=== PATIENT | female | born 1990 | race Caucasian/White ===

== ENCOUNTER → 2017-06-20 | Outpatient (CLI) | payer OTHER ==
[2017-06-20 16:58] LABS: ALBUMIN 3.9 gm/dl (3.4-5.0); ALT/SGPT 19 U/L (12-78); AST/SGOT 9 U/L (15-37); BLOOD UREA NITROGEN 13 mg/dl (7-18); CALCIUM 8.8 mg/dl (8.5-10.1); CARBON DIOXIDE 28 mmol/L (21-32); CREATININE 0.62 mg/dl (0.60-1.20); GLUCOSE 106 mg/dl (70-99); POTASSIUM 3.8 mmol/L (3.5-5.1); SODIUM 137 mmol/L (136-145)
[2017-06-20 17:09] LABS: ALKALINE PHOSPHATASE 79 U/L (45-117); CHOLESTEROL 175 mg/dl (0-200); LDL CHOLESTEROL CALCULATED 115 mg/dl; TOTAL PROTEIN 7.7 gm/dl (6.4-8.2)
[2017-06-21 06:45] LABS: HEMOGLOBIN A1C 5.1 % (4.5-5.6)
== END | disposition home or self-care (01) ==
LOC: C.LABBC 14:41
PROVIDERS: ATTEND Family Medicine Adult Medicine
DX: R63.5 Abnormal weight gain (principal); Z00.00 Encounter for general adult medical examination without abnormal findings

== ENCOUNTER → 2017-08-28 | Outpatient (CLI) | payer OTHER | END | disposition home or self-care (01) | LOC: C.PAPS 08:00 | PROVIDERS: ATTEND Physician Assistant | DX: Z12.4 Encounter for screening for malignant neoplasm of cervix (principal) ==

== ENCOUNTER 2024-11-21 07:25 | Inpatient (IN) ==
[2024-11-21] MEDS ORDERED: SODIUM CHLORIDE 0.9% 100 ML IV PRN (08:21)
[2024-11-21] MEDS ORDERED: OXYTOCIN 30 UNITS/NSS 30 UNITS/500 ML BAG IV PRN ×2 (09:04→20:47)
[2024-11-21] MEDS ORDERED: LIDOCAINE 1% LOCAL 20 ML VIAL INFIL PRN (09:04)
[2024-11-21 09:31] LABS: Hematocrit (blood only) 37.7 % (37.0-47.0); Hemoglobin 12.2 g/dl (12.0-16.0); Mean Corpuscular Hemoglobin 27.5 pg (25.0-34.0); Mean Corpuscular Volume 85.1 fL (80.0-100.0); Platelet Count 238 K/uL (130-400); RDW Standard Deviation 51.3 fL (36.4-46.3); Red Blood Count 4.43 M/uL (4.20-5.40); White Blood Count 13.96 K/ul (4.8-10.8)
--- NOTE | 2024-11-21 09:41 | History & Physical Report ---
Date of Service November 21, 2024 Assessment & Plan (1) Insulin controlled gestational diabetes mellitus (GDM) during : Plan: We had a lengthy discussion about risks of shoulder dystocia - she had discussed this with multiple providers in our office previously as well. Discussed that she has increased risks for shoulder dystocia - obesity, GDMA2, larger baby. Based on US performed 2w ago, can extrapolate that this baby is likely to be 1lb larger than the [id number] from last week's measurement - which would now equate to approx 3912g. This estimated weight is below the threshold to recommend delivery by CS, and her spontaneous labor, and history of delivery of large baby in the past (>8lbs) lead me to predict that she has [id number] chance of sucess for vaginal delivery. We discussed vaginal delivery attempt given the above, vs elective primary (which would carry its own risks, given her diabetes and obesity), and patient would prefer vaginal delivery if possible. I think this decision-making is reasonable. She plans for epidural. Will monitor contractions - if they do not progress to labor pattern, she is agreeable to pitocin for augmentation. History of Present Illness Chief Complaint: leaking fluid Primary Care Provider: Gunnar Atkins, DO 34yo @ 38 07/30, started leaking clear fluid at 5am, leaking continues. Feeling some contractions, no vaginal bleeding. + movement. and Delivery Plans AMA Weekly NST's @ 36 weeks Need for Rhogam d/t Rh negative blood *Rhogam given 09/10/2024 - SP Obesity (BMI between 35-39 @ beginning of ) *Growth US @ 32 wks *Weekly NSTs @ 36wks Hepatitis B- not immune GDM on insulin *Wkly NSTs @32wks and Twice wkly @36wks *Serial growth US @28wks *Deliver by [facility] (11/25/24) LGA fetus at 36 weeks--AC >98, efw 96, 3472gm., 7#10oz. - IOL scheduled for 12/01 (her desire to move later in 39th week) Allergies Allergy/AdvReac Type Severity Reaction Status Date / Time No Known Drug Allergies Allergy Verified 11/19/24 15:20 Home Medications Medication Instructions Recorded Confirmed Type docosahexaenoic acid [ DHA] PO 06/04/24 11/19/24 History acetone (urine) test (Ketone Urine #50 ea 06/28/24 11/19/24 Rx Test strips) blood sugar diagnostic (OneTouch #150 ea 06/28/24 11/19/24 Rx Verio test strips) blood-glucose meter (OneTouch #1 ea 06/28/24 11/19/24 Rx Verio Reflect Meter) lancets 33 gauge (OneTouch Delica #150 ea 06/28/24 11/19/24 Rx Plus Lancet) pen needle, diabetic 32 gauge x #100 ea 07/01/24 11/19/24 Rx 5/32" (BD Evelin 2nd Gen Pen Needle) breast pump #1 ea 11/12/24 11/19/24 Rx insulin NPH isoph U-100 human 100 85 unit subcut .at bed time 11/21/24 11/21/24 History unit/mL (3 mL) subcutaneous pen (Novolin N FlexPen) Patient History Medical History History of chicken pox Dietary counseling and surveillance Metabolic syndrome ADD (attention deficit disorder) Migraine headache Acne Surgical History S/P tonsillectomy Family History Father Diabetes Kidney stones Mother Hypertension Crohn's disease Graves disease Uncle Kidney disease Grandmother (Paternal) Uterine cancer Denies family history of Ovarian cancer Breast cancer Colorectal cancer Social History (Updated 11/21/24 @ 07:45 by Adelaida Cruz RN) Smoking Status: Never smoker Do You Dip or Chew Tobacco: No; Hx Alcohol Use: No Hx Substance Use: No Preferred Language: Welsh Communication Ability: Effective Precision Jig Grinder Required: No Beliefs That Will Affect Care: None marital status: Single marital status details: Hardy Pitts (35) [phone] Current Living Situation: Family and Significant Other Current Living Situation Comment: lives with hardy, daughter, dogs current occupational status: employed current occupation: secretary administrative assistant [employer] [facility] Other Information That Helps Us Care for You: No Feels Safe at Home: No Diet Comment: GDM Physical Activity Frequency: 3-4 Times per Week Assistive Devices: None Review of Systems All systems reviewed & are unremarkable except as noted in HPI & below Physical Exam 2 Physical Exam: FHT Cat 1 [place] - occasional SVE 4/70/-2 Leaking copious clear fluid, +nitrizine Constitutional: WD/WN, vitals as above Respiratory: normal respiratory effort, lungs clear to auscultation no respiratory distress Cardiovascular: Rate/Rhythm: regular rate and regular rhythm Gastrointestinal (Abdomen): Inspection/Auscultation: abdomen normal to inspection Percussion/Palpation: abdomen soft; abdomen nontender Gravid. No s/s chorio or abruption. Skin: no rashes, warm and dry Psychiatric: A+Ox3, euthymic affect Results & Data Vital Signs (Past 12 Hours) Vital Signs Temp Pulse Resp BP 11/21/24 08:34 36.7 C 88 18 133/85 11/21/24 07:47 36.6 C 18 Coding Level of Care Code None Diagnoses Insulin controlled gestational diabetes mellitus (GDM) during O24.414
[2024-11-21] MEDS: LACTATED RINGER'S 1,000 ML IV PRN (10:45)
[2024-11-21] MEDS: OXYTOCIN 30 UNITS/NSS 30 UNITS/500 ML BAG IV PRN (10:46)
[2024-11-21] MEDS ORDERED: NALOXONE HCL 1 MG in SODIUM CHLORIDE 0.9% 1,000 ML IV PRN (11:30)
[2024-11-21] MEDS ORDERED: ROPIVACAINE 0.5% PF 5 MG/ML 20 ML VIAL EPI PRN (11:30)
[2024-11-21] MEDS ORDERED: NALOXONE HCL 0.4 MG/1 ML VIAL/CARP IV PRN (11:30)
[2024-11-21] MEDS ORDERED: LIDOCAINE 2% MPF LOCAL 5 ML VIAL EPI PRN (11:30)
[2024-11-21] MEDS ORDERED: diphenhydrAMINE 50 MG/ML VIAL IV PRN (11:30)
[2024-11-21] MEDS ORDERED: NALBUPHINE HCL INJ 10 MG/ML AMP IV PRN (11:30)
--- NOTE | 2024-11-21 11:33 | Anesthesiology Consultation ---
Date of Service November 21, 2024 Assessment & Plan Chart Review Chart Review: Patient NOT seen in Pre Admission Testing and Acceptable Risk for Labor Epidural Consults Requested none ASA ASA3 Proposed Anesthesia Anesthesia Type: Labor Epidural Risk / Benefits Reviewed With: PT / POA / Parent / Guardian, Accepts Plan and Informed Consent Obtained History Height/Weight Height: 5 ft 5 in Weight: 112.491 kg Allergies Allergy/AdvReac Type Severity Reaction Status Date / Time No Known Drug Allergies Allergy Verified 11/19/24 15:20 Medications Home Medications Medication Instructions Recorded Confirmed Last Taken docosahexaenoic acid [ DHA] PO 06/04/24 11/19/24 11/20/24 acetone (urine) test (Ketone Urine #50 ea 06/28/24 11/19/24 Unknown Test strips) blood sugar diagnostic (OneTouch #150 ea 06/28/24 11/19/24 Unknown Verio test strips) blood-glucose meter (OneTouch #1 ea 06/28/24 11/19/24 Unknown Verio Reflect Meter) lancets 33 gauge (OneTouch Delica #150 ea 06/28/24 11/19/24 Unknown Plus Lancet) pen needle, diabetic 32 gauge x #100 ea 07/01/24 11/19/24 Unknown 5/32" (BD Evelin 2nd Gen Pen Needle) breast pump #1 ea 11/12/24 11/19/24 Unknown insulin NPH isoph U-100 human 100 85 unit subcut .at bed time 11/21/24 11/21/24 11/20/24 unit/mL (3 mL) subcutaneous pen (Novolin N FlexPen) Active Medications Generic Name Dose Route Start Last Admin Trade Name Freq PRN Reason Stop Dose Admin Lactated Ringer's 1,000 mls @ 125 mls/hr 11/21/24 09:04 11/21/24 10:45 Lr IV 11/23/24 09:03 999 mls/hr .Q8H PRN Administration L&D Protocol Protocol Oxytocin 30 units in 500 mls @ 1 mls/hr 11/21/24 09:04 11/21/24 10:46 Pitocin 30 Units/Nss IV 11/23/24 09:03 0.06 units/hr .Q24H PRN 1 mls/hr Labor Induction/Augmentation Administration Protocol 0.06 UNITS/HR NPO Date Last Intake of Fluids: 11/21/24 Time Last Intake of Fluids: 11:00 Date Last Intake of Solids: 11/21/24 Time Last Intake of Solids: 09:30 Past Medical History Medical History History of chicken pox Dietary counseling and surveillance Metabolic syndrome ADD (attention deficit disorder) Migraine headache Acne Exercise / Class Metabolic Activity 1 > 8 Run/Swim/Ski/Tennis Past Family History Family History Father Diabetes Kidney stones Mother Hypertension Crohn's disease Graves disease Uncle Kidney disease Grandmother (Paternal) Uterine cancer Denies family history of Ovarian cancer Breast cancer Colorectal cancer Past Surgical History Surgical History S/P tonsillectomy Past Anesthesia History No Hx of Anesthesia Complications and No Family Hx of Anesthesia Complications History of PONV No Hx of PONV and No Hx of Motion Sickness Social History Smoking Status: Never smoker Do You Dip or Chew Tobacco: No Hx Alcohol Use: No Alcohol type: beer Hx Substance Use: No Review of Systems ROS Unobtainable: All systems reviewed & are unremarkable except as noted in HPI & below Physical Exam Vital Signs Last Vital Signs Temp 36.7 C 11/21/24 10:41 Pulse 108 H 11/21/24 11:27 Resp 20 11/21/24 10:41 BP 134/72 11/21/24 10:41 Pulse Ox 96 11/21/24 11:27 ENMT Mouth: no TMJ abnormality Thyromental Distance: > or= 3.5 Finger Breadths Mallampati Class: II Neck normal visual inspection and trachea midline; neck extension not limited Respiratory normal respiratory effort Auscultation: lungs clear to auscultation bilaterally Cardiovascular Rate/Rhythm: regular rate and regular rhythm Heart Sounds: no murmur Musculoskeletal Spine: normal cervical ROM Extremities: full ROM of extremities Neurologic moves all extremities Psychiatric Orientation: alert and oriented x 3 Testing Laboratory Results 11/21/24 09:18 Blood Type O Negative 11/21/24 08:40 Antibody Screen NEGATIVE 11/21/24 08:40 11/21/24 11/21/24 11/21/24 10:39 09:31 08:34 POC Glucose 109 H 103 H 98
[2024-11-21] MEDS: fentANYL 2 MCG/ML BUPIVacaine 0.125%-NSS 100ML BAG ONE (11:53)
[2024-11-21] MEDS: BUPIVACAINE 0.25% PF 30 ML VIAL ONE (11:56)
[2024-11-21] MEDS: LIDOCAINE 2%/EPINEPHRINE 1:200,000 20 ML PF ONE (11:57)
[2024-11-21] MEDS: SODIUM CHLORIDE 0.9% PF INJ 10 ML VIAL ONE (11:57)
[2024-11-21] MEDS: LIDOCAINE 2%/EPINEPHRINE 1:200,000 20 ML PF EPI STA (12:40)
[2024-11-21] MEDS: SODIUM CHLORIDE 0.9% PF INJ 10 ML VIAL EPI STA (12:40)
[2024-11-21] MEDS: BUPIVACAINE 0.25% PF 30 ML VIAL EPI STA (12:40)
[2024-11-21] MEDS: BUPIVACAINE 0.25% PF 30 ML VIAL EPI PRN (16:48)
[2024-11-21] MEDS: SODIUM CHLORIDE 0.9% PF INJ 10 ML VIAL EPI PRN (16:49)
--- NOTE | 2024-11-21 16:57 | Anesthesia Procedure Note ---
Date of Service November 21, 2024 Anesthesia Epidural Re-Dose Vital Signs Temp Pulse Resp BP Pulse Ox 36.7 C 111 H 18 110/58 L 98 11/21/24 15:00 11/21/24 16:52 11/21/24 16:00 11/21/24 16:52 11/21/24 16:47 Notes Pain Intensity: 5 Dilatation (cm): 6.5 Effacement (%): 90 Called by nursing to evaluate epidural as the patient is having increased pain. The epidural was re-dosed with the following medications (all medications via epidural route) after negative aspiration of the epidural catheter for CSF/HEME. 0.2 Ropivacaine ml via epidural After Epidural Re-Dose Mental Status: alert / awake / arousable and participated in evaluation Pain: improving with treatment Airway Patency, RR, SpO2: stable & adequate BP & HR: stable & adequate Additional Notes: Pain of left side. Some increased sensation to ice on left side. Redosed with 100 mcg fentanyl and 6 cc 0.125 bupi. pain improved. HDS
--- NOTE | 2024-11-21 17:06 | Labor Progress Brief Note ---
Date of Service November 21, 2024 Subjective Comfortable with epidural, but starting to feel some pressure. FHT Cat 1 [place] 2-3 SVE 10/100/-1, pelvis feels spacious. Will labor down at this time. Results & Data Vital Signs (Past 12 Hours) Vital Signs Temp Pulse Resp BP Pulse Ox 11/21/24 17:04 109 H 113/57 L 11/21/24 17:02 125 H 96 11/21/24 17:01 103 H 116/59 L 11/21/24 16:58 107 H 112/56 L 11/21/24 16:57 117 H 97 11/21/24 16:55 112 H 102/54 L 11/21/24 16:52 96 11/21/24 16:52 118 H 11/21/24 16:52 111 H 110/58 L 11/21/24 16:49 96 H 114/58 L 11/21/24 16:47 102 H 98 11/21/24 16:42 97 H 20 121/69 97 11/21/24 16:37 99 H 97 11/21/24 16:32 90 97 11/21/24 16:27 97 11/21/24 16:27 93 H 11/21/24 16:27 91 H 123/71 11/21/24 16:22 91 H 95 11/21/24 16:17 111 H 95 11/21/24 16:12 92 H 95 11/21/24 16:11 80 121/60 11/21/24 16:09 81 94 11/21/24 16:07 85 95 11/21/24 16:02 81 95 11/21/24 16:00 18 11/21/24 16:00 18 11/21/24 15:57 86 96 11/21/24 15:56 93 H 131/67 11/21/24 15:52 92 H 95 11/21/24 15:47 90 97 11/21/24 15:42 89 96 11/21/24 15:41 96 H 18 128/71 11/21/24 15:37 92 H 97 11/21/24 15:32 87 96 11/21/24 15:27 79 18 125/61 97 11/21/24 15:22 87 97 11/21/24 15:17 92 H 97 11/21/24 15:12 90 95 11/21/24 15:11 90 120/58 L 11/21/24 15:07 93 H 94 11/21/24 15:02 96 H 97 11/21/24 15:00 20 11/21/24 15:00 36.7 C 20 11/21/24 14:57 90 124/67 96 11/21/24 14:52 99 H 96 11/21/24 14:47 91 H 96 11/21/24 14:42 98 11/21/24 14:42 96 H 11/21/24 14:42 97 H 94/65 L 11/21/24 14:38 85 94 11/21/24 14:37 93 H 97 11/21/24 14:32 90 95 11/21/24 14:27 87 95 11/21/24 14:25 108 H 20 96/53 L 11/21/24 14:22 105 H 95 11/21/24 14:21 88 94 11/21/24 14:17 113 H 96 11/21/24 14:16 93 H 93 11/21/24 14:12 114 H 95 11/21/24 14:11 101 H 93 11/21/24 14:10 103 H 20 99/58 L 11/21/24 14:07 121 H 96 11/21/24 14:03 95 H 94 11/21/24 14:02 110 H 95 11/21/24 14:00 20 11/21/24 14:00 20 11/21/24 13:57 86 93 11/21/24 13:55 86 94/52 L 11/21/24 13:52 98 H 95 11/21/24 13:51 114 H 94 11/21/24 13:50 107 H 20 90/57 L 11/21/24 13:47 102 H 94 11/21/24 13:44 93 H 94 11/21/24 13:42 95 11/21/24 13:42 105 H 11/21/24 13:42 109 H 89/52 L 11/21/24 13:38 91 H 94 11/21/24 13:37 110 H 95 11/21/24 13:32 106 H 96 11/21/24 13:27 94 H 96 11/21/24 13:26 92 H 18 110/59 L 11/21/24 13:22 89 94 11/21/24 13:21 85 94 06/29/25 13:17 91 H 95 11/21/24 13:16 105 H 94 11/21/24 13:12 104 H 96 11/21/24 13:11 106 H 18 118/60 94 11/21/24 13:07 97 H 96 11/21/24 13:02 101 H 95 11/21/24 13:01 97 H 94 11/21/24 13:00 20 11/21/24 13:00 36.7 C 20 11/21/24 12:57 98 H 95 11/21/24 12:54 98 H 94 11/21/24 12:52 100 H 94 11/21/24 12:48 95 H 94 11/21/24 12:47 100 H 97 11/21/24 12:42 99 H 94 11/21/24 12:38 96 H 94 11/21/24 12:37 109 H 97 11/21/24 12:32 94 11/21/24 12:32 100 H 11/21/24 12:32 92 H 94 11/21/24 12:27 97 11/21/24 12:27 106 H 11/21/24 12:27 108 H 20 110/59 L 11/21/24 12:22 112 H 95 11/21/24 12:17 115 H 95 11/21/24 12:13 106 H 94 11/21/24 12:12 101 H 96 11/21/24 12:10 112 H 100/57 L 11/21/24 12:08 114 H 104/56 L 11/21/24 12:07 110 H 97 11/21/24 12:06 112 H 103/55 L 11/21/24 12:04 104 H 20 112/58 L 11/21/24 12:02 110 H 20 121/60 94 11/21/24 12:00 103 H 97/51 L 11/21/24 11:58 118 H 20 109/57 L 11/21/24 11:57 124 H 97 11/21/24 11:56 118 H 115/71 11/21/24 11:54 122 H 18 124/71 11/21/24 11:52 97 11/21/24 11:52 104 H 11/21/24 11:52 110 H 18 131/67 11/21/24 11:50 98 H 132/82 11/21/24 11:48 93 H 18 128/63 11/21/24 11:47 89 96 11/21/24 11:46 96 H 18 136/74 11/21/24 11:42 102 H 96 11/21/24 11:39 94 H 18 128/65 11/21/24 11:37 97 H 96 11/21/24 11:32 96 H 96 11/21/24 11:27 108 H 96 11/21/24 11:22 102 H 97 11/21/24 11:17 94 H 96 11/21/24 10:41 36.7 C 86 20 134/72 11/21/24 08:34 36.7 C 88 18 133/85 11/21/24 07:47 36.6 C 18 Coding Level of Care Code None
--- NOTE | 2024-11-21 18:15 | Labor Progress Brief Note ---
Date of Service November 21, 2024 Subjective Comfortable with epidural. FHT Cat 1 [place] Q 2 SVE 10/100/0 Will initiate practice pushes. Results & Data Vital Signs (Past 12 Hours) Vital Signs Temp Pulse Resp BP Pulse Ox 11/21/24 18:12 108 H 94 11/21/24 18:07 113 H 98 11/21/24 18:02 100 H 98 11/21/24 18:00 112 H 136/71 11/21/24 17:57 97 H 97 11/21/24 17:52 98 H 98 11/21/24 17:47 103 H 99 11/21/24 17:45 93 H 148/89 H 11/21/24 17:42 105 H 98 11/21/24 17:41 105 H 93 11/21/24 17:37 102 H 100 11/21/24 17:32 96 H 100 11/21/24 17:28 100 H 18 96/53 L 11/21/24 17:27 95 H 100 11/21/24 17:25 94 H 113/57 L 11/21/24 17:22 95 H 127/58 L 98 11/21/24 17:19 116 H 126/57 L 11/21/24 17:17 108 H 99 11/21/24 17:16 109 H 102/55 L 11/21/24 17:13 116 H 103/55 L 11/21/24 17:12 115 H 99 11/21/24 17:10 100 H 104/50 L 11/21/24 17:07 97 11/21/24 17:07 113 H 11/21/24 17:07 103 H 104/53 L 94 11/21/24 17:04 109 H 113/57 L 11/21/24 17:02 125 H 96 11/21/24 17:01 36.8 C 103 H 20 116/59 L 11/21/24 16:58 107 H 112/56 L 11/21/24 16:57 117 H 97 11/21/24 16:55 112 H 102/54 L 11/21/24 16:52 96 11/21/24 16:52 118 H 11/21/24 16:52 111 H 110/58 L 11/21/24 16:49 96 H 114/58 L 11/21/24 16:47 102 H 98 11/21/24 16:42 97 H 20 121/69 97 11/21/24 16:37 99 H 97 11/21/24 16:32 90 97 11/21/24 16:27 97 11/21/24 16:27 93 H 11/21/24 16:27 91 H 123/71 11/21/24 16:22 91 H 95 11/21/24 16:17 111 H 95 11/21/24 16:12 92 H 95 11/21/24 16:11 80 121/60 11/21/24 16:09 81 94 11/21/24 16:07 85 95 11/21/24 16:02 81 95 11/21/24 16:00 18 11/21/24 16:00 18 11/21/24 15:57 86 96 11/21/24 15:56 93 H 131/67 11/21/24 15:52 92 H 95 11/21/24 15:47 90 97 11/21/24 15:42 89 96 11/21/24 15:41 96 H 18 128/71 11/21/24 15:37 92 H 97 11/21/24 15:32 87 96 11/21/24 15:27 79 18 125/61 97 11/21/24 15:22 87 97 11/21/24 15:17 92 H 97 11/21/24 15:12 90 95 11/21/24 15:11 90 120/58 L 11/21/24 15:07 93 H 94 11/21/24 15:02 96 H 97 11/21/24 15:00 20 11/21/24 15:00 36.7 C 20 11/21/24 14:57 90 124/67 96 11/21/24 14:52 99 H 96 11/21/24 14:47 91 H 96 11/21/24 14:42 98 11/21/24 14:42 96 H 11/21/24 14:42 97 H 94/65 L 11/21/24 14:38 85 94 11/21/24 14:37 93 H 97 11/21/24 14:32 90 95 11/21/24 14:27 87 95 11/21/24 14:25 108 H 20 96/53 L 11/21/24 14:22 105 H 95 11/21/24 14:21 88 94 11/21/24 14:17 113 H 96 11/21/24 14:16 93 H 93 11/21/24 14:12 114 H 95 11/21/24 14:11 101 H 93 11/21/24 14:10 103 H 20 99/58 L 11/21/24 14:07 121 H 96 11/21/24 14:03 95 H 94 11/21/24 14:02 110 H 95 11/21/24 14:00 20 11/21/24 14:00 20 11/21/24 13:57 86 93 11/21/24 13:55 86 94/52 L 11/21/24 13:52 98 H 95 11/21/24 13:51 114 H 94 11/21/24 13:50 107 H 20 90/57 L 11/21/24 13:47 102 H 94 11/21/24 13:44 93 H 94 11/21/24 13:42 95 11/21/24 13:42 105 H 11/21/24 13:42 109 H 89/52 L 11/21/24 13:38 91 H 94 11/21/24 13:37 110 H 95 11/21/24 13:32 106 H 96 11/21/24 13:27 94 H 96 11/21/24 13:26 92 H 18 110/59 L 11/21/24 13:22 89 94 11/21/24 13:21 85 94 11/21/24 13:17 91 H 95 11/21/24 13:16 105 H 94 11/21/24 13:12 104 H 96 11/21/24 13:11 106 H 18 118/60 94 11/21/24 13:07 97 H 96 11/21/24 13:02 101 H 95 11/21/24 13:01 97 H 94 11/21/24 13:00 20 11/21/24 13:00 36.7 C 20 11/21/24 12:57 98 H 95 11/21/24 12:54 98 H 94 11/21/24 12:52 100 H 94 11/21/24 12:48 95 H 94 11/21/24 12:47 100 H 97 11/21/24 12:42 99 H 94 11/21/24 12:38 96 H 94 11/21/24 12:37 109 H 97 11/21/24 12:32 94 11/21/24 12:32 100 H 06/29/25 12:32 92 H 94 11/21/24 12:27 97 11/21/24 12:27 106 H 11/21/24 12:27 108 H 20 110/59 L 11/21/24 12:22 112 H 95 11/21/24 12:17 115 H 95 11/21/24 12:13 106 H 94 11/21/24 12:12 101 H 96 11/21/24 12:10 112 H 100/57 L 11/21/24 12:08 114 H 104/56 L 11/21/24 12:07 110 H 97 11/21/24 12:06 112 H 103/55 L 11/21/24 12:04 104 H 20 112/58 L 11/21/24 12:02 110 H 20 121/60 94 11/21/24 12:00 103 H 97/51 L 11/21/24 11:58 118 H 20 109/57 L 11/21/24 11:57 124 H 97 11/21/24 11:56 118 H 115/71 11/21/24 11:54 122 H 18 124/71 11/21/24 11:52 97 11/21/24 11:52 104 H 11/21/24 11:52 110 H 18 131/67 11/21/24 11:50 98 H 132/82 11/21/24 11:48 93 H 18 128/63 11/21/24 11:47 89 96 11/21/24 11:46 96 H 18 136/74 11/21/24 11:42 102 H 96 11/21/24 11:39 94 H 18 128/65 11/21/24 11:37 97 H 96 11/21/24 11:32 96 H 96 11/21/24 11:27 108 H 96 11/21/24 11:22 102 H 97 11/21/24 11:17 94 H 96 11/21/24 10:41 36.7 C 86 20 134/72 11/21/24 08:34 36.7 C 88 18 133/85 11/21/24 07:47 36.6 C 18 Coding Level of Care Code None
[2024-11-21] MEDS: fentANYL 2 MCG/ML BUPIVacaine 0.125%-NSS 100ML BAG EPI PRN (19:26)
[2024-11-21] MEDS: ONDANSETRON INJ 2 MG/ML 2 ML VIAL IV PRN (19:28)
--- NOTE | 2024-11-21 20:26 | Delivery Summary ---
Vaginal Delivery Summary Date of Service November 21, 2024 Vaginal Delivery Summary and 1st Degree LAC Vaginal Delivery Summary: Pre-delivery diagnoses: 34yo @ 38 3/7, spontaneous labor, GDMA2, obesity, AMA Post-delivery diagnoses: same Procedure: spontaneous vaginal delivery Surgeon: Gisele Olea DO Complications: none Findings: Viable male . Apgars: 3/9. Weight pending 8#15 Estimated QBL: 400ml Description of delivery: The patient progressed to complete with epidural anesthesia. She then began to push. She spontaneously vaginally delivered a viable from the cephalic presentation. The head delivered in CARLOS position. No nuchal. The anterior shoulder delivered, followed by the posterior shoulder, followed by the body. The baby was placed on mother's abdomen and a spontaneous cry was heard. Delayed cord clamping was employed, and the cord was doubly clamped and cut. A segment was retained for cord gases. Cord blood was obtained. During placental delivery attempt, the cord was avulsed from the placenta, therefore the placenta was delivered by manual extraction. The bladder was drained. The uterus and vagina were swept of clots and debris. IV pitocin was given. Since the manual extraction was performed, and concern for hemorrhage due to large baby, the patient was given TXA, methergine, and hemabate, and cytotec during the manual extraction of the placenta. She will be given ancef postdelivery. The uterus became firm after full extraction of the placenta. The cervix, vagina, and perineum were inspected and small first degree perineal laceration was noted, it was hemostatic and did not require repair. Excellent hemostasis was observed. The mother was recovering in stable and good condition in the room, baby was initially taken to nursery by the nursery team. Sponge and instrument counts were correct x 2. Gisele Olea DO [facility] Vaginal Delivery Charge Vaginal Delivery Codes: 02796 global code for the antepartum, delivery, and post- Delivery Type Details: and 1st Degree LAC
[2024-11-21] MEDS ORDERED: HYDROCORTISONE ACETATE 25 MG SUPP PR PRN (20:47)
[2024-11-21] MEDS ORDERED: IBUPROFEN 600 MG TAB PO PRN (20:47)
[2024-11-21 21:08] LABS: Base Excess Cord Venous Blood -4.1 mEq/L (-7.7-1.9); Cord Venous Blood PO2 22 mmHg (14.1-43.3); O2 Saturation Cord Venous Bld < 60.0 % (<68)
[2024-11-21 21:09] LABS: Base Excess Cord Arterial Bld -5.7 mEq/L (-9-1.8); CO2 Cord Arterial Blood 56 mmHg (39.1-73.5); HCO3 Cord Arterial Blood 23 mmol/L (19.7-28.5); Oxygen Sat Cord Arterial Blood < 60.0 % (<60); PO2 Cord Arterial Blood < 20 mmHg (4.1-31.7); pH Cord Arterial Blood 7.22 (7.1-7.38)
[2024-11-21] MEDS: TRANEXAMIC ACID / 0.7% NACL 1,000 MG/100 ML BAG IV STA (21:12)
[2024-11-21] MEDS: CARBOPROST TROMETHAMINE 250 MCG/ML AMPUL IM ONE (21:14)
[2024-11-21] MEDS: METHYLERGONOVINE MALEATE 0.2 MG/ML AMP IM ONE (21:14)
[2024-11-21] MEDS: DOCUSATE SODIUM 100 MG CAP PO SCH (21:19)
[2024-11-21] MEDS: DIPHTHER/TETAN/PERTUS Vaccine (Tdap, Adol/Adult) 0.5mL IM ONE (21:52)
[2024-11-22] MEDS: ACETAMINOPHEN 325 MG TAB PO PRN (05:22)
--- NOTE | 2024-11-22 05:55 | Anesthesia Procedure Note ---
Date of Service November 22, 2024 Anesthesia Post Epidural Note Vital Signs Vital Signs: Temp Pulse Resp BP Pulse Ox O2 Del Method 36.4 C L 100 H 18 107/68 98 Room Air 11/22/24 01:11/22/24 01:11/22/24 01:11/22/24 01:26 11/22/24 01:11/22/24 01:26 Notes Mental Status: alert / awake / arousable and participated in evaluation Nausea / Vomiting: adequately controlled Pain: adequately controlled Airway Patency, RR, SpO2: stable & adequate BP & HR: stable & adequate Hydration State: stable & adequate Neuraxial Anesthesia: was administered and sensory block is resolving Anesthetic Complications: no major complications apparent Epidural: Removed without complications and With tip intact
--- NOTE | 2024-11-22 07:32 | Obstetrical Progress Note ---
Date of Service November 22, 2024 Assessment & Plan (1) care and examination: PPD#1 doing well. Continue routine care, anticipate DC home tomorrow. Subjective Ambulation: ambulating normally Voiding: no voiding problems Diet Tolerance:: regular diet Lochia:: Moderate Review of Systems All systems reviewed & are unremarkable except as noted in HPI & below Physical Exam Constitutional WD/WN, vitals as above no acute distress Respiratory normal respiratory effort Cardiovascular Rate/Rhythm: regular rate and regular rhythm Gastrointestinal (Abdomen) Inspection/Auscultation: abdomen normal to inspection; abdomen not distended Percussion/Palpation: abdomen soft Genitourinary OB Exam Abdomen: + fundal height Fundus: + firm; not tender Results & Data Vital Signs (Past 12 Hours) Vital Signs Temp Pulse Pulse Resp BP BP Pulse Ox 11/22/24 04:30 36.8 C 103 H 18 111/24 L 100 11/22/24 01:26 36.4 C L 100 H 18 107/68 98 11/21/24 22:25 18 11/21/24 22:11 118/57 L 11/21/24 21:56 123 H 123/56 L 11/21/24 21:55 18 11/21/24 21:41 122 H 116/57 L 11/21/24 21:26 123 H 125/60 11/21/24 21:25 18 11/21/24 21:11 125 H 117/57 L 11/21/24 21:10 16 11/21/24 20:56 118 H 105/52 L 11/21/24 20:55 18 11/21/24 20:41 129 H 100/56 L 11/21/24 20:40 16 11/21/24 20:26 166 H 137/63 11/21/24 20:25 16 11/21/24 20:17 135 H 100 11/21/24 20:14 141 H 88 L 11/21/24 20:12 132 H 100 11/21/24 20:07 127 H 99 11/21/24 20:02 128 H 100 11/21/24 20:00 125 H 132/70 11/21/24 19:57 100 11/21/24 19:57 126 H 11/21/24 19:57 134 H 92 11/21/24 19:52 130 H 100 11/21/24 19:51 132 H 83 L 11/21/24 19:47 127 H 100 11/21/24 19:46 137 H 86 L 11/21/24 19:42 131 H 98 11/21/24 19:39 137 H 92 11/21/24 19:37 136 H 100 11/21/24 19:32 136 H 100 O2 Del Method 11/22/24 04:30 Room Air 11/22/24 01:26 Room Air 11/21/24 22:25 11/21/24 22:11 11/21/24 21:56 11/21/24 21:55 11/21/24 21:41 11/21/24 21:26 11/21/24 21:25 11/21/24 21:11 11/21/24 21:10 11/21/24 20:56 11/21/24 20:55 11/21/24 20:41 11/21/24 20:40 11/21/24 20:26 11/21/24 20:25 11/21/24 20:17 11/21/24 20:14 11/21/24 20:12 11/21/24 20:07 11/21/24 20:02 11/21/24 20:00 11/21/24 19:57 11/21/24 19:57 11/21/24 19:57 11/21/24 19:52 11/21/24 19:51 11/21/24 19:47 11/21/24 19:46 11/21/24 19:42 11/21/24 19:39 11/21/24 19:37 11/21/24 19:32
[2024-11-22] MEDS: PRENATAL VITAMIN 1 TAB PO SCH (08:05)
[2024-11-22] MEDS: BENZOCAINE 20% SPRY 85 APPLN/85 GM CAN EXT PRN (08:07)
[2024-11-22 08:54] LABS: Hematocrit (blood only) 31.3 % (37.0-47.0); Hemoglobin 10.1 g/dl (12.0-16.0)
--- NOTE | 2024-11-23 05:37 | Obstetrical Progress Note ---
Date of Service November 23, 2024 Assessment & Plan (1) Encounter for assessment: Plan Doing well. Plan d/c today. Instructions given. Day #:: 2 Subjective Ambulation: ambulating normally Voiding: no voiding problems Passing Gas:: Yes Diet Tolerance:: regular diet Lochia:: Small Feeding Type:: breast feeding Physical Exam Constitutional WD/WN, vitals as above Respiratory normal respiratory effort, lungs clear to auscultation Cardiovascular RRR, no murmur, no edema Extremities: + edema (tr-+1); no calf tenderness Gastrointestinal (Abdomen) soft, nt, nd, ff/nt at u Psychiatric A+Ox3, euthymic affect Results & Data Vital Signs (Past 12 Hours) Vital Signs Temp Pulse Resp BP Pulse Ox O2 Del Method 11/23/24 00:00 36.8 C 96 H 18 106/68 97 Room Air 11/22/24 20:00 36.7 C 96 H 18 109/72 97 Room Air
[2024-11-23 07:53] VITALS: BP 111/73; RESP 18; TEMP 97.9; O2SAT 97
[2024-11-23 09:35] VITALS: PULSE 88
== END 2024-11-23 15:54 | disposition home or self-care (01) | DRG 807 ==
LOC: OPB 07:25 → 4S1 07:31 → 4E2 22:42